=== PATIENT | male | born 1975 | race Two or more races ===

== ENCOUNTER → 2019-06-26 | Outpatient (CLI) | payer BC ==
[2019-06-26 11:11] LABS: Basophils # (auto) 0.1 uL; Basophils % (auto) 1.6 % (0.0-2.0); Eosinophils # (auto) 0.3 uL; Eosinophils % (auto) 5.7 % (0.0-7.0); Hematocrit 46.9 % (41.0-53.0); Hemoglobin 15.5 g/dL (13.5-17.5); Lymphocytes # (auto) 1.9 uL; Lymphocytes % (auto) 31.8 % (10.0-50.0); Mean Corpuscular Hemoglobin 28.9 pg (28.0-32.0); Mean Corpuscular Volume 87.5 fL (80.0-100.0); Monocytes # (auto) 0.3 uL; Monocytes % (auto) 5.8 % (0.0-12.0); Neutrophils # (auto) 3.3 uL; Neutrophils % (auto) 55.1 % (37.0-80.0); Platelet Count (auto) 224 10^3/uL (140-450); Red Blood Cells 5.36 10^6/uL (4.5-5.90); Red Cell Distribution Width 14.8 % (11.8-14.3)
[2019-06-26 11:17] LABS: Urine Bacteria NONE SEEN /hpf (None Seen); Urine Blood 1+ /uL (Negative); Urine Mucus FEW (None Seen); Urine Specific Gravity 1.032 (1.001-1.035); Urine WBC 9 /hpf (0 - 3)
[2019-06-26 11:37] LABS: Albumin 3.8 g/dL (3.4-5.0); Calcium 8.8 mg/dL (8.5-10.1); Potassium 3.9 mmol/L (3.5-5.1)
[2019-06-26 11:43] LABS: BUN/Creatinine Ratio 18.3; Bilirubin, Total 0.3 mg/dL (0.2-1.0); CRP High Sensitivity 0.14 mg/dL (< 0.3); Total Protein 7.5 g/dL (6.4-8.2)
== END | disposition home or self-care (01) ==
LOC: LAB 10:31
PROVIDERS: ATTEND Internal Medicine
DX: M25.531 Pain in right wrist (principal); M25.571 Pain in right ankle and joints of right foot
CPT/HCPCS: 36415; 80053; 80061; 81001; 82306; 85025; 85652; 86141

== ENCOUNTER → 2019-08-05 | Outpatient (CLI) | payer BC | END | disposition home or self-care (01) | LOC: LAB 10:42 | PROVIDERS: ATTEND Internal Medicine | DX: R31.29 Other microscopic hematuria (principal) | CPT/HCPCS: 84153 ==

== ENCOUNTER → 2019-08-29 | Outpatient (CLI) | payer BC | END | disposition home or self-care (01) | LOC: LAB 16:09 | PROVIDERS: ATTEND Urology | DX: N39.0 Urinary tract infection, site not specified (principal); R31.29 Other microscopic hematuria | CPT/HCPCS: 87086 ==